=== PATIENT | female | born 1955 | race Caucasian/White ===

== ENCOUNTER 2017-03-23 13:28 | Inpatient (IN) | payer MEDICARE, OTHER ==
[~2017-03-23] VITALS: Ht 160 cm; Wt 73.5 kg
--- NOTE | 2017-03-23 13:28 | NUR ---
Patient is brought in by private ambulance for psych admission to our M[facility]. Nursing supervisor concrete stone finishing Cade, Dr Lenz & [facility] hospitalist accepted the patient before patient came to our hospital. Security assistance for 1:1 sitter obs was called immediately.
[2017-03-23] MEDS ORDERED: LORA1TAB PO (13:39)
[2017-03-23] MEDS ORDERED: ALBU8HFA4 IH (13:39)
[2017-03-23] MEDS ORDERED: MAG355OR18 PO (13:39)
[2017-03-23] MEDS ORDERED: NORCO PO (13:39)
[2017-03-23] MEDS ORDERED: DULO30CA2 PO (13:39)
[2017-03-23] MEDS ORDERED: DOXE25CA3 PO (13:39)
[2017-03-23] MEDS ORDERED: KLONOPIN PO (13:41)
--- NOTE | 2017-03-23 13:42 | NUR ---
Dr Piña is at bedside
--- NOTE | 2017-03-23 14:00 | NUR ---
Dr Piña cleared the patient for psych admission. No further diagnostic testing needed per Dr Piña.
[2017-03-23] MEDS ORDERED: TEMAZEPAM 7.5 MG CAPSULE PO PRN (15:15)
[2017-03-23] MEDS ORDERED: MAG HYDROX/AL HYDROX/SIMETH 30 ML LIQUID UDC PO PRN (15:15)
[2017-03-23] MEDS ORDERED: ACETAMINOPHEN 325 MG TABLET PO PRN (15:15)
[2017-03-23] MEDS ORDERED: MAGNESIUM HYDROXIDE 30 ML LIQUID UDC PO PRN (15:15)
[2017-03-23] MEDS ORDERED: HYDROCODONE/APAP 5-325MG TABLET PO PRN (16:00)
[2017-03-23] MEDS ORDERED: diphenhydrAMINE 25 MG/10 ML UDC PO PRN (16:15)
[2017-03-23 17:02] VITALS: BP 137/69
[2017-03-23] MEDS: HYDROCODONE/APAP 10-325 MG TABLET PO PRN ×2 (17:22→23:42)
[2017-03-23] MEDS ORDERED: PNEUMOCOCCAL 23-VAL P-SAC VAC 0.5 ML VIAL IM ONE (19:00)
[2017-03-23 20:21] VITALS: BP 138/82
[2017-03-23] MEDS: LORAZEPAM 1 MG TABLET PO PRN (20:22)
--- NOTE | 2017-03-23 21:32 | NUR ---
Pt C/O 04/07 ANXIETY, ATIVAN 1mg ADMINISTERED WITH MINIMAL EFFECT. WILL ATTEMPT OTHER NURSING INTERVENTIONS. Pt REMAINS EXTREMELY RESTLESS AND ANXIOUS.
[2017-03-23] MEDS: TEMAZEPAM 15 MG CAPSULE PO PRN (22:24)
--- NOTE | 2017-03-24 06:00 | NUR ---
Pt WAS IN AND OUT OF BED INTERMITTENTLY THE ENTIRE SHIFT CONSTANTLY ASKING FOR OPIOID PAIN MEDICATION AND ATIVAN. Pt WAS EDUCATED NUMEROUS TIMES ABOUT MEDICATION FREQUENCY, DOSAGE, AND INDICATIONS. Pt STILL REQUESTED PRN MEDICATIONS MULTIPLE TIMES, AND REQUIRED FREQUENT REDIRECTION. Pt STATES SHE HAS "PANIC ATTACKS" AND C/O MULTIPLE SOMATIC COMPLAINTS. NON-PHARMACOLOGICAL INTERVENTIONS INCLUDING ICE PACK, HOT PACKS, DEEP BREATHING, AND HOT SHOWER WERE OFFERED-ALL REFUSED BY Pt. Pt IS NEEDY, DEMANDING, MANIPULATIVE, AND ATTEMPTS TO STAFF SPLIT WHEN HER REQUESTS ARE NOT IMMEDIATELY MET. NO COMBATIVE BEHAVIORS. SLEPT 9 HOURS.
[2017-03-24] MEDS: HYDROCODONE/APAP 10-325 MG TABLET PO PRN ×4 (06:07→21:02)
[2017-03-24 06:44] LABS: BASOPHILS # (AUTO) 0.2 K/uL (0.0-8.0); EOSINOPHILS % (AUTO) 0.2 % (0.0-7.0); HEMATOCRIT 39.9 % (37-47); HEMOGLOBIN 13.2 G/DL (12.0-16.0); LYMPHOCYTES # (AUTO) 2.4 K/UL (0.8-4.8); MEAN CORPUSCULAR HEMOGLOBIN 31.2 UUG (27.0-31.0); MEAN CORPUSCULAR HGB CONC 33 g/dL (32.0-37.0); MEAN CORPUSCULAR VOLUME 93.8 FL (81.0-99.0); MONOCYTES # (AUTO) 0.6 K/UL (0.1-1.30); MONOCYTES % (AUTO) 7.8 % (0.0-11.0); NEUTROPHILS # (AUTO) 4.4 K/UL (1.8-8.9); PLATELET COUNT (AUTO) 469 K/UL (150-450); RED BLOOD CELL COUNT(AUTO) 4.25 MIL/UL (4.2-5.4); WHITE BLOOD COUNT (AUTO) 7.6 K/UL (4.0-11.2)
[2017-03-24 07:18] LABS: MAGNESIUM 2.4 mg/dL (1.8-2.4); PHOSPHOROUS 4.1 mg/dL (2.5-4.9); POTASSIUM 4.8 mmol/L (3.5-5.1)
[2017-03-24] MEDS: NICOTINE 21 MG/24HR PATCH TD SCH (07:39)
[2017-03-24 08:00] VITALS: BP 119/87
[2017-03-24] MEDS: LORAZEPAM 1 MG TABLET PO PRN ×2 (09:55→16:47)
[2017-03-24] MEDS: diphenhydrAMINE 25 MG CAP PO PRN ×2 (09:55→16:48)
[2017-03-24 16:17] VITALS: BP 111/66
--- NOTE | 2017-03-24 16:20 | NUR ---
GPS: Nursing Notes: Destructive Behavior to Self: Patient is awake and responding to her name, depressed mood and anxious affect, argumentative, requesting a private room, episodes of crying, denies any SI/HI, constantly asking for more narcotics, poor impulse control at times, intrusive, getting into nursing station, redirected and setting limits during shift, stated, "They are lying about me.. I don't want to kill myself... I was packing my mother's staff and I became very depressed...", mood swings during shift, staff splitter, saying one thing to one staff and another thing to another staff, unable to formulate a viable plan for self care, refusing to shower, unkempt appearance, continue with treatment plan.
[2017-03-24 17:52] LABS: *BLOOD, URINE Trace-intact (NEGATIVE); *COLOR,URINE YELLOW (YELLOW); *KETONES,URINE NEGATIVE (NEGATIVE); *PROTEIN,URINE TRACE (NEGATIVE); LEUKOCYTE ESTERASE ,URINE 1+ (NEGATIVE); NITRITE, URINE NEGATIVE (NEGATIVE); PH,URINE 6.5 (5.0-8.0); UGLUCOSE NEGATIVE (NEGATIVE)
[2017-03-24 18:27] LABS: *BILIRUBIN,URIN 1+ (NEGATIVE); *CLARITY,URINE SLIGHTLY CLOUDY (CLEAR)
[2017-03-24 18:40] LABS: BACTERIA,URINE MODERATE /HPF (NONE SEEN); MUCUS,URINE MANY /LPF (0-FEW); SQUAMOUS EPITHELIAL CELL,UR MODERATE /HPF (NONE SEEN)
[2017-03-24 20:00] VITALS: BP 120/86
[2017-03-24] MEDS ORDERED: DULOXETINE 30 MG CAPSULE.DR PO SCH (21:00)
[2017-03-24] MEDS ORDERED: DOXEPIN 100 MG CAPSULE PO SCH (21:00)
[2017-03-24] MEDS: DOXEPIN 50 MG CAPSULE PO SCH (21:01)
[2017-03-24] MEDS: DULOXETINE 60 MG CAPSULE.DR PO SCH (21:01)
--- NOTE | 2017-03-24 22:00 | NUR ---
received to care, lying in bed, calm, and appropriate, upon approach. remains isolative in room, interacts well with her room mate. IEVT erikleón was given at 2101 for lower back pain 8/10 on pain scale. by 2129, she was asleep. as of 2199, she remains asleep. no distress noted. will continue to monitor closely.
[2017-03-25] MEDS: TEMAZEPAM 15 MG CAPSULE PO PRN ×2 (01:35→22:45)
--- NOTE | 2017-03-25 01:35 | NUR ---
PRN restoril given for insomnia
[2017-03-25] MEDS: LORAZEPAM 1 MG TABLET PO PRN ×2 (03:00→11:34)
--- NOTE | 2017-03-25 03:00 | NUR ---
PRN ativan given for anxiety
[2017-03-25] MEDS: HYDROCODONE/APAP 10-325 MG TABLET PO PRN ×4 (04:57→20:13)
--- NOTE | 2017-03-25 04:57 | NUR ---
PRN norco given for 810 lower back pain
--- NOTE | 2017-03-25 06:00 | NUR ---
appears to be asleep. slept 6.0 hours, total. no distress noted.
[2017-03-25 07:30] VITALS: BP 101/68
[2017-03-25] MEDS: NICOTINE 21 MG/24HR PATCH TD SCH (09:11)
[2017-03-25] MEDS: SULFAMETH/TRIMETH 800/160 MG TABLET PO SCH ×2 (11:34→20:28)
--- NOTE | 2017-03-25 11:57 | NUR ---
Initial discharge instructions: Pt lives at home [[address],[address];[phone]].Per pt,she would like to return home upon discharge.Pt did not provide any contact or consent for family.SW will speak with pt and MD regarding appropriate discharge plans.SW will form a safe and proper discharge.
--- NOTE | 2017-03-25 13:28 | NUR ---
UR Note: LUCIO faxed current clinicals to Yariel COOPER with [facility] [ /Fx: [phone]]. Awaiting authorization.
[2017-03-25 16:00] VITALS: BP 133/81
[2017-03-25 19:46] VITALS: BP 111/68
[2017-03-25] MEDS: DOXEPIN 50 MG CAPSULE PO SCH (20:28)
[2017-03-25] MEDS: DULOXETINE 60 MG CAPSULE.DR PO SCH (20:28)
--- NOTE | 2017-03-25 22:00 | NUR ---
received to care, lying in bed, calm, and appropriate, upon approach. remains isolative in room, interacts well with her room mates. IVET verdin was given at 2012 for lower back pain 8/10 on pain scale, which was effective, by 2099. as of 2199, she remains awake. no distress noted. will continue to monitor closely.
--- NOTE | 2017-03-25 22:45 | NUR ---
PRN restoril given for insomnia
--- NOTE | 2017-03-25 23:20 | NUR ---
appears to be asleep. no distress noted.
[2017-03-26] MEDS: HYDROCODONE/APAP 10-325 MG TABLET PO PRN ×4 (06:05→22:24)
--- NOTE | 2017-03-26 06:35 | NUR ---
slept 6.5 hours, total. Addendum: 03/26/17 at 0636 by ANABELA PARRISH LVN correction. slept 7.5 hours
[2017-03-26 07:30] VITALS: BP 114/80
[2017-03-26] MEDS: SULFAMETH/TRIMETH 800/160 MG TABLET PO SCH ×2 (09:12→21:19)
[2017-03-26] MEDS: NICOTINE 21 MG/24HR PATCH TD SCH (09:12)
--- NOTE | 2017-03-26 12:41 | NUR ---
UR Note: LUCIO faxed current clinicals to Yariel COOPER with [facility] [ /Fx: [phone]]. Awaiting authorization.
[2017-03-26 16:00] VITALS: BP 125/64
[2017-03-26] MEDS: MUPIROCIN 2% OINT 22 GM TUBE TP SCH ×2 (18:04→21:21)
[2017-03-26] MEDS: LORAZEPAM 1 MG TABLET PO PRN (18:04)
[2017-03-26 20:00] VITALS: BP 128/86
[2017-03-26] MEDS: DULOXETINE 60 MG CAPSULE.DR PO SCH (21:19)
[2017-03-26] MEDS: DOXEPIN 50 MG CAPSULE PO SCH (21:20)
[2017-03-27] MEDS: LORAZEPAM 1 MG TABLET PO PRN (04:42)
--- NOTE | 2017-03-27 05:22 | NUR ---
NSG/GPS Patient requested anti-diarrhea medication, lomotil or Imodium. Will endorse to a.m. shift to obtain an order from M.D. if patient suffers a second occurrence, patient will notify nurse.
[2017-03-27 07:30] VITALS: BP 133/82
--- NOTE | 2017-03-27 08:27 | NUR ---
DC Note: Patient will be discharged back home [[address], [place], [address]; [phone]] via private transportation at 11:00 am. Spoke with patient's uncle, Jorge [phone] who reported he would apple picker the patient along with his great-granddaughter- Toshia. Patient is aware and agreeable with discharge plans as well. Patient will follow-up with Dr.Del Franklin (Psychiatrist) [[address], [place] [address]; [phone]] on Thursday03/31/17 at 1:00 pm. Patient was referred to [facility] [[address] [place] [address]; [phone]] for outpatient mental health. Patient will follow-up with ([facility]) [[address] [place] [address]; [phone]]. Patient was provided with a substance abuse intervention and referred to [facility] [phone], [facility] [phone], [facility]. Patient was encouraged to present at the [facility] ([facility]) [[address], [place]; [address]; ] on Thursday03/30/17 at 6:00 pm.
[2017-03-27] MEDS: NICOTINE 21 MG/24HR PATCH TD SCH (08:52)
[2017-03-27] MEDS: SULFAMETH/TRIMETH 800/160 MG TABLET PO SCH (08:52)
[2017-03-27] MEDS: MUPIROCIN 2% OINT 22 GM TUBE TP SCH (08:53)
[2017-03-27] MEDS: HYDROCODONE/APAP 10-325 MG TABLET PO PRN (08:57)
[2017-03-27] MEDS ORDERED: FLUCONAZOLE 100 MG TABLET PO SCH (09:00)
--- NOTE | 2017-03-27 10:48 | NUR ---
RE PSYCH MED RX: PT REQUESTED THAT WE CALL IN PSYCH MEDS TO [facility] ([address] [facility] [phone]). SPOKE WITH VIOLETTE TO CALL IN RX FOR CYMBALTA AND DOXEPIN, VIOLETTE STATES THE SYSTEM WILL NOT ALLOW HER TO ENTER THE RX BECAUSE SHE HAS REFILLED THEM TOO RECENTLY AND SHOULD STILL HAVE A SUPPLY OF THEM (THEY ARE BOTH HOME MEDS THE PT HAS BEEN ON). NOTIFIED PT. Addendum: 03/27/17 at 1103 by JIMENEZ PRICE RN PT STATES "I HAVE PLENTY OF BOTH OF THOSE MEDS AT HOME AND DO NOT NEED A RX"
--- NOTE | 2017-03-27 11:00 | NUR ---
Discharged instructions given to the patient regarding medications to continue at home, patient verbalized understanding. Prescription and belongings given, 1125 Went home with her uncle and daughter via private car.
== END 2017-03-27 11:25 | disposition home or self-care (01) | DRG 885 ==
LOC: ER 13:28 → GPS 14:12
PROVIDERS: ADMIT Psychiatry & Neurology Psychiatry; ATTEND Internal Medicine
DX: F33.2 Major depressive disorder, recurrent severe without psychotic features (principal); F11.20 Opioid dependence, uncomplicated; L03.213 Periorbital cellulitis; J44.9 Chronic obstructive pulmonary disease, unspecified; E03.9 Hypothyroidism, unspecified; G89.4 Chronic pain syndrome; M79.7 Fibromyalgia; F41.9 Anxiety disorder, unspecified; F10.10 Alcohol abuse, uncomplicated; Y90.9 Presence of alcohol in blood, level not specified; K58.0 Irritable bowel syndrome with diarrhea; Z91.5 Personal history of self-harm
CPT/HCPCS: 36415; 83735; 84100; 85025; 87086; 90732; 93005; A4663; J8499; Q0163